=== PATIENT | male | born 1960 | race Two or more races ===

== ENCOUNTER 2018-11-16 20:02 | Emergency (ER) | payer OTHER ==
[2018-11-16] MEDS ORDERED: Aspirin 81 mg CHEW TAB* 81 MG TAB.CHEW PO ONE (20:09)
[2018-11-16] MEDS ORDERED: Heparin VIAL(*) 5000 UNITS/ML VIAL (FIVE THOUSAND) IV ONE (20:09)
[2018-11-16] MEDS ORDERED: Heparin VIAL(*) 5000 UNITS/ML VIAL (FIVE THOUSAND) ONE (20:11)
[2018-11-16] MEDS ORDERED: Aspirin 81 mg CHEW TAB* 81 MG TAB.CHEW ONE (20:11)
--- NOTE | 2018-11-16 20:15 | ED ---
HPI Chest Pain - HPI Summary HPI Summary: A 57 y/o male brought in by [facility] ambulance presents to [facility] with a chief complaint of chest tightness. A buffing machine operator was used as the patient speaks Mandarin. He says that his chest pain worsened tonight and his PCP instructed him to come to the ED. He says that he had bypass done in January of last year in [place]. He says that he does not know how many blood vessels he had repaired. He does not know the name of the hospital where he had a seizure. He says that his current discomfort is very mild. He denies any fever, SOB, cough, pain or swelling in his legs. He says that he has a lot of medication that he does not take. He says that he smokes and drinks and denies drug use. He denies any Hx schizophrenia or bipolar. He denies any FHx of aneurysm. STEMI alert called 20:25. Pts EKG was not a classical STEMI and there were elements of significant repolarization. The patient needed to use a buffing machine operator and it was difficult to communicate and sometimes he had contradictory statements. - History of Current Complaint Chief Complaint: EDChestPainROMI Hx Obtained From: Assistant Winemaker Timing: Constant - unknown for how long, but worsened tonight Initial Severity: Mild Current Severity: Mild Pain Scale Used: mild Chest Pain Location: Diffuse Chest Pain Radiates: No Character: Other: - discomfort Aggravating Factor(s): Nothing Alleviating Factor(s): Nothing Associated Signs and Symptoms: Negative: Shortness of Breath, Swelling, Fever, Cough, Productive Cough, Nonproductive Cough, Back Pain, Calf Pain/Swelling, Edema - Allergy/Home Medications Allergies/Adverse Reactions: Allergies Allergy/AdvReac Type Severity Reaction Status Date / Time No Known Allergies Allergy Verified 11/16/18 20:08 PMH/Surg Hx/FS Hx/Imm Hx Sensory History: Denies: Hx Deafness EENT History: Denies: Hx Deafness Psychiatric History: Denies: Hx Schizophrenia, Hx Bipolar Disorder - Surgical History Surgery Procedure, Year, and Place: CABG Infectious Disease History: No Infectious Disease History: Denies: Traveled Outside the [place] in Last 30 Days - Family History Known Family History: Positive: Other - negative: aneurysm - Social History Alcohol Use: admits to EtOH use Hx Substance Use: No Substance Use Type: Reports: None Hx Tobacco Use: Yes Smoking Status (MU): Smoker, Current Status Unknown Review of Systems Negative: Fever Positive: Chest Pain Negative: Shortness Of Breath, Cough Negative: Myalgia, Edema All Other Systems Reviewed And Are Negative: Yes Physical Exam - Summary Physical Exam Summary: Constitutional: Well-developed, Well-nourished, Alert. (-) Distressed Skin: Warm, Dry HENT: Normocephalic; Atraumatic Eyes: Conjunctiva normal Neck: Musculoskeletal ROM normal neck. (-) JVD, (-) Stridor, (-) Tracheal deviation Cardio: Rhythm regular, rate normal, Heart sounds normal; Intact distal pulses; The pedal pulses are 2+ and symmetric. Radial pulses are 2+ and symmetric. (-) Murmur Pulmonary/Chest wall: Effort normal. (-) Respiratory distress, (-) Wheezes, (-) Rales Abd: Soft, (-) tenderness, (-) Distension, (-) Guarding, (-) Rebound Musculoskeletal: (-) Edema Lymph: (-) Cervical adenopathy Neuro: Alert, Oriented x3 Psych: Mood and affect Normal Triage Information Reviewed: Yes Vital Signs On Initial Exam: Initial Vitals Temp Pulse Resp BP Pulse Ox 96.1 F 48 16 102/78 99 11/16/18 20:03 11/16/18 20:03 11/16/18 20:03 11/16/18 20:03 11/16/18 20:03 Vital Signs Reviewed: Yes Diagnostics - Vital Signs Vital Signs Temp Pulse Resp BP Pulse Ox 11/16/18 20:03 96.1 F 48 16 102/78 99 - Laboratory Result Diagrams: 11/16/18 20:20 11/16/18 20:20 Lab Statement: Any lab studies that have been ordered have been reviewed, and results considered in the medical decision making process. - Radiology CXR Radiology Interpretation Completed By: ED Physician Summary of Radiographic Findings: No acute disease. Pending official imaging report. - EKG 19:59 Cardiac Rate: Bradycardia - 56 bpm EKG Rhythm: Sinus Bradycardia Summary of EKG Findings: EKG at 19:59 showed sinus bradycardia at 56 bpm, early repolarization, 1mm J point elevation V4-V6 with UT depression. 21:11 Cardiac Rate: Bradycardia - 49 bpm EKG Rhythm: Sinus Bradycardia Summary of EKG Findings: EKG at 21:11 showed sinus bradycardia at 49 bpm, Diffuse ST elevations inferior anterolateral. Re-Evaluation - Re-Evaluation First Eval Re-Evaluation Time: 21:44 Change: Unchanged Comment: Starting to feel better. One year ago he drank alcohol and had pain just like this. Chest Pain Course/Dx - Course Course Of Treatment: A 57 y/o male brought in by [facility] ambulance presents to [facility] with a chief complaint of chest tightness. A buffing machine operator was used as the patient speaks Mandarin. He says that his chest pain worsened tonight and his PCP instructed him to come to the ED. He says that he had bypass done in January of last year in [facility]. He says that he does not know how many blood vessels he had repaired. He does not know the name of the hospital where he had a seizure. He says that his current discomfort is very mild. He denies any fever , SOB, cough, pain or swelling in his legs. He says that he has a lot of medication that he does not take. He says that he smokes and drinks and denies drug use. He denies any Hx schizophrenia or bipolar. He denies any FHx of aneurysm. STEMI alert called 20:25. Pts EKG was not a classical STEMI and there were elements of significant repolarization. The patient needed to use a buffing machine operator and it was difficult to communicate and sometimes he had contradictory statements. I notified Dr. Burns that the patient has J point elevation, is a difficult historian and I am unable to make out a clear sternotomy scar. He will see the patient in the ED. CXR revealed no acute disease. EKG at 19:59 showed sinus bradycardia at 56 bpm, early repolarization, 1mm J point elevation V4-V6 with UT depression. EKG at 21:11 showed sinus bradycardia at 49 bpm, Diffuse ST elevations inferior anterolateral. In the ED course the patient was given Maalox Plus PO, Aspirin PO, Heparin IV, Iohexol IV , Lidocaine PO, Nitroglycerin Drip, Sodium Chloride IV and Calan IV. Blood work , chemistries and toxicology obtained. The patient had two troponins of 0.00. Serum alcohol of 233 and lactic acid of 2.7 at 20:20. Dr. Burns actually was able to provide outside medical records. The patient's EKG appears largely unchanged compared to comparison EKG provided by his family physician, Dr. Medina. Her phone number is [phone]. The patient and his upon my initial and secondary history taking were unable to provide the doctor's name or phone number originally. The patient's daughter is also a decent historian. Her phone number is [phone]. The patient had a cardiac catheterization in August 2017 which revealed clean coronaries. In July [address] angiogram of his coronaries which questioned LAD lesions. At this point, after collateral history is given, and outside records are available, his EKG appears largely unchanged. He also now reports that he has similar discomfort after massive quantities of alcohol. His discomfort is resolving. He has had 2 negative troponins thus far, and a negative CK. He is clinically intoxicated and should be reevaluated when sober. The patient takes LIPITOR for hypercholesterolemia. This patient will be signed out to Dr. Rivera at 22:00 pending CTA chest/thorax, troponin and EKG. - Diagnoses Provider Diagnoses: Substernal chest pain - Provider Notifications Discussed Care Of Patient With: Darien Burns Time Discussed With Above Provider: 20:29 Instructed by Provider To: Will See In ED - Critical Care Time Critical Care Time: 30-74 min Discharge - Sign-Out/Discharge Documenting (check all that apply): Sign-Out Patient Signing out patient TO: Edwin Rivera - pending CTA chest/thorax, troponin, and EKG Patient Received Moderate/Deep Sedation with Procedure: No - Discharge Plan Condition: Stable Referrals: No Primary Care Phys,NOPCP [Primary Care Provider] - - Attestation Statements Document Initiated by Scribe: Yes Documenting Scribe: Darien Gentile Provider For Whom Scribe is Documenting (Include Credential): Chris Forrest MD Scribe Attestation: IDarien, scribed for Chris Forrest MD on 11/16/18 at 3132.
[2018-11-16] MEDS ORDERED: NS 0.9% 1000 ML** 1,000 ML IV ONE ×2 (20:26→22:42)
[2018-11-16 20:32] LABS: ABS Basophils 0.1 10^3/ul (0-0.2); ABS Eosinophils 0.2 10^3/ul (0-0.6); ABS Lymphocytes 2.8 10^3/ul (1.0-4.8); ABS Monocytes 0.5 10^3/ul (0-0.8); ABS Neutrophils 5.5 10^3/ul (1.5-7.7); Eosinophil % 2.3 %; Hematocrit 43 % (42-52); Hemoglobin 14.6 g/dL (14.0-18.0); Lymphocyte % 30.7 %; Mean Corpuscular HGB Conc 34 g/dL (31-36); Mean Corpuscular Hemoglobin 34 pg (27-31); Mean Corpuscular Volume 99 fL (80-94); Mean Platelet Volume 6.9 fL (7.4-10.4); Nucleated Red Blood Cells % 0.1; Platelet Count 223 10^3/uL (150-450); Red Blood Count 4.35 10^6 /uL (4.18-5.48); Red Cell Distribution Width 13 % (10-15); White Blood Count 9.1 10^3/uL (3.5-10.8)
[2018-11-16] MEDS ORDERED: Heparin(*) 1000 UNIT/ML 10 ML VIAL CATH LAB IV ONE (20:47)
[2018-11-16] MEDS ORDERED: nitroGLYCERIN DRIP* 25,000 MCG/250 ML BTL ONE (20:47)
[2018-11-16] MEDS ORDERED: Iohexol 350 (CONTRAST) 200 ML MDV IV ONE ×2 (20:47→21:05)
[2018-11-16] MEDS ORDERED: VERAPAMIL 2.5 MG/ML 2 ML VIAL ** 5 mg/2 ml ONE (20:47)
[2018-11-16] MEDS ORDERED: Lidocaine 1% INJ* 10 MG/ML 30 ML SDV ONE (20:47)
[2018-11-16 20:53] LABS: Albumin 4.1 g/dL (3.2-5.2); Albumin/Globulin Ratio 1.5 (1-3); BUN/Creatinine Ratio 20.5 (8-20); Calcium 8.6 mg/dL (8.6-10.3); EGFR African American 107.6 (>60); EGFR Non-African American 88.9 (>60); Globulin 2.7 g/dL (2-4); Potassium 3.3 mmol/L (3.5-5.0); Total Bilirubin 1.5 mg/dL (0.2-1.0); Total Protein 6.8 g/dL (6.4-8.9)
[2018-11-16 21:06] LABS: C Reactive Protein 1.19 mg/L (<8.01)
[2018-11-16] MEDS ORDERED: Iohexol 350* (CONTRAST) 500 ML MDV IV ONE (21:53)
[2018-11-16] MEDS ORDERED: Lidocaine 2% VISCOUS* 15 ML UDC PO ONE (22:11)
[2018-11-16] MEDS ORDERED: Al Hydrox/Mg Hydrox/Simet LIQ* 30 ML UDC PO ONE (22:11)
[2018-11-16 22:34] LABS: Erythrocyte Sed Rate 3 mm/Hr (0-19)
[2018-11-16] MEDS ORDERED: Potassium Chlor TAB* 20 MEQ TAB.ER PO ONE (22:57)
[2018-11-16] MEDS ORDERED: Magnesium Sulfate 2 GM IV* 2 GM/50 ML BAG IVPB ONE (22:57)
--- NOTE | 2018-11-16 22:58 | ED ---
Progress - Progress Note Progress Note: Patient received from Dr. Forrest to Dr. Rivera at 2200 11/16/18 shift change pending CTA chest/thorax, Troponin. - Results/Orders Results/Orders: Troponin stays unchanged at 0.00 at 20:20, 21:49, 23:38. Chest/Thorax CTA reveals No visible acute pulmonary embolism. ED physician has reviewed this imaging report. Re-Evaluation - Re-Evaluation First Eval Re-Evaluation Time: 21:44 Change: Unchanged Comment: Starting to feel better. One year ago he drank alcohol and had pain just like this. Course/Dx - Course Course Of Treatment: Troponin stays unchanged at 0.00 at 20:20, 21:49, 23:38. Chest/Thorax CTA reveals No visible acute pulmonary embolism. ED physician has reviewed this imaging report. Upon sobriety, patient was discharged to home. Patient will follow up with PCP within 3 days. - Diagnoses Provider Diagnoses: Alcohol intoxication, Atypical chest pain Discharge - Sign-Out/Discharge Documenting (check all that apply): Patient Departure - discharge Patient Received Moderate/Deep Sedation with Procedure: No - Discharge Plan Condition: Stable Disposition: HOME Patient Education Materials: Chest Pain (ED) Referrals: [facility] [Outside] - 3 Days Additional Instructions: Follow up with primary care provider within 3 days. PLEASE RETURN TO THE ED IMMEDIATELY FOR WORSENING OR CONCERNING SYMPTOMS. - Attestation Statements Document Initiated by Scribe: Yes Documenting Scribe: Lina Youngblood Provider For Whom Esau is Documenting (Include Credential): Edwin Rivera MD Scribe Attestation: I, Lina Youngblood, scribed for Edwin Rivera MD on 11/17/18 at 0718. Status of Scribe Document: Ready
[2018-11-17 01:51] VITALS: BP 105/60
--- NOTE | 2018-11-17 11:00 | CONS ---
EMERGENCY ROOM INTERVENTIONAL CARDIOLOGY CONSULT: DATE OF CONSULT: 11/17/18 INDICATION FOR THE CONSULT: A STEMI alert was called by Dr. Forrest (emergency room physician) on this 57-year-old [id number] male for chest discomfort and abnormal EKG. HISTORY OF PRESENT ILLNESS: This report represents a culmination of 2-1/2 hours spent in direct contact with the patient as well as multiple phone calls to the patient's daughter as well as the patient's family doctor and eventually , the patient's box closing machine operator in [facility]. It should be noted that the history direct from the patient was extremely difficult at best to obtain as initially the emergency room staff had a [employer] chemist organic for Mandarin and then I learned that the patient's language was not Mandarin, but [place], after which we were able to try to get better interpretation; however, the patient was not responding to multiple questions by the chemist organic. We also tried to have the daughter help get information from the patient. Eventually, we were able to obtain and talk with the patient's family doctor and eventually box closing machine operator to obtain all the information. This consult will represent a summary of all that information; however, it must be realized that this was obtained over a 2-hour time period and as such, it was not all obtained initially. Eventually, the history become more clearly obtained that the patient developed chest discomfort after drinking alcohol at 6 p.m., it was epigastric in nature. He apparently spoke to his family doctor, who referred him to the ER saying they will either be able to save your life or not. He kept saying that to the chemist organic when we would talk to him and try to understand his symptoms. He presented to the emergency room, and in the emergency room, his EKG demonstrated abnormal ST-T wave changes suggesting early repolarization in multiple leads, but no clear reciprocal changes. A STEMI alert was called. When I arrived, he was still having discomfort, but we were able to elicit that his discomfort was improved, and was mild that that point. I immediately brought an echocardiogram machine down to get a limited bedside echo to look at wall motion to see if there was indeed evidence of segmental wall motion abnormalities, and that was not present. There was overall low normal contractility to the left ventricle. We then eventually got cardiac enzymes back that revealed a troponin from 8:20 p.m., which was 0.00. Again, the history was that the patient's symptoms had started at 6 p.m. One of the things that made his whole cardiac situation difficult to clarify was that Dr. Forrest told me that the patient stated he had had bypass surgery done a year ago. Dr. Forrest said he did not see any scars, so he is not sure of that history. Then, we obtained through the chemist organic something that sounded more like he had had a percutaneous coronary intervention as they mentioned the word "stent" in the artery. This obviously made us more concerned of a potential cardiac issue. Eventually, I was able to call the patient's private family doctor, Dr. Je Medina (telephone number [phone]) in, I believe, [place] who discussed this case further. She was able to tell us that he had had a heart catheterization a year ago, but there was not significant disease. She was unclear in telling me all the details and eventually, we were able to speak with the patient's box closing machine operator, Dr. Darien Lauren (and Dr. Lauren's telephone number is [phone]), who then explained to me that the patient had had a coronary CTA performed in July 2017 that showed mild-to- moderate narrowing in the mid LAD and mild proximal disease in the LAD. Because of continued chest discomfort symptoms in August, he underwent a cardiac catheterization that we believe was performed in [facility] in [place], [place]. That cardiac catheterization revealed normal left anterior descending artery, normal circumflex, and normal right coronary artery. It was done as a radial artery procedure. Prior to obtaining all that information, Dr. Forrest felt that he wanted a CTA performed since it appeared that this was not a cardiac etiology and at the same time, we ordered another troponin level, which was performed at 9:49, over an hour since the last one, and that came back 0.00. Once we obtained all the cardiac information from his box closing machine operator, I then explained to Dr. Forrest that this was not a STEMI case and there was no indication to proceed to the cardiovascular laboratory. I explained to him should he need cardiology, the noninterventional box closing machine operator is superannuation clerk and he said he would take over the case from there. Part of the workup once we found out he had ingested alcohol was an alcohol level that came back at 233, which was felt to be approximately almost 3 times the safe limit for driving in [facility]. The patient's management was turned over to Dr. Forrest for ongoing care with the decision of admitting to the hospital to be under his consideration. We were able to obtain that the patient's past medical history was that of hyperlipidemia, for which he was on low-dose Lipitor at 10 mg a day. According to his family doctor, Dr. Medina, he had borderline elevated sugars and his blood pressure had always been in control. The patient does smoke. REVIEW OF SYSTEMS: Review of systems was virtually impossible to get in great detail and no additional findings, other than those quoted in the emergency room note were established. PHYSICAL EXAM: When I saw him at bedside revealed blood pressure 102/70, pulse 45 to 50, respirations 16, O2 saturation 100%. Neck was without increased JVP. Carotid was difficult to appreciate as he could not hold his breath. Carotid pulses were normal. Lungs were clear to A and P. Heart revealed a regular rate and rhythm, mildly bradycardic. No significant systolic or diastolic murmur appreciated. Abdomen was soft, nontender. Extremities without edema. Pulses were intact. Neuro: The patient seemed to be able to answer appropriately, although given the language barrier, we could not assess fully. Psychiatric could not accurately assessed. DIAGNOSTIC STUDIES/LAB DATA: Revealed hemoglobin and hematocrit 14.6 and 43, platelet count of 223,000. ESR was 3. Sodium 140, potassium 3.3, chloride 107 , bicarb 24, BUN and creatinine of 18 and 0.8, glucose 135, lactic acid 2.7. Total bili 1.5, SGOT 15, SGPT 16, alkaline phosphatase 59. Troponin 0.00 as initial one and a repeat one prior to me leaving was 0.00 as well. Lipase was 66, amylase 30. Serum alcohol level was 233. Chest x-ray visually was reported by the emergency room physician to show no evidence of acute cardiopulmonary disease. CTA of chest, the emergency room physician reported that there were no gross abnormalities that he could see on it of concern. Electrocardiogram from 11/16/18 at 19:59 showed sinus bradycardia with heart rate 56. There was mild J-point elevations seen in V2 through V5. V6 showed mild CA depression, but J point was actually not elevated. There was a mild CA depression in lead II as well and possibly slightly in lead aVF. Repeat EKG showed no dramatic changes. Specifically, there was no progression to worsening of the ST- segment changes. Review of EKGs done not only a year ago, but further back that were sent to me via phone images (with no patient information on them) revealed similar ST-T wave abnormalities. OVERALL ASSESSMENT: After a significant amount of time spent with this patient , and obtaining multiple records from different people as described above, there was no clear evidence that an acute QM-[id number] myocardial infarction was occurring and as such, the STEMI alert was canceled and the team was sent home. Further management was being given over to Dr. Forrest to make any decisions on further testing, hospitalist involvement, and admission to the hospital under his care. One other important telephone number to note is the patient's daughter who lives in [facility]. Her telephone number was [phone]. [id number]/[facility] #: [id number] MTDD
== END 2018-11-17 01:40 | disposition home or self-care (01) ==
LOC: ED 20:02
DX: R07.89 Other chest pain (principal); F10.929 Alcohol use, unspecified with intoxication, unspecified
CPT/HCPCS: 36415; 71045; 71275; 80053; 80320; 82150; 82550; 83605; 83690; 84484; 85025; 85652; 86140; 93005; 96361; 96365; 96375; 96376; 99285; A9270-GY; G0480; J1644; J3475; Q9967